=== PATIENT | female | born 1980 | race Caucasian/White ===

== ENCOUNTER → 2019-11-26 | Outpatient (CLI) | payer MEDICAID ==
[~2019-11-26] MED LIST: PANT-47 PO
== END | disposition home or self-care (01) ==
LOC: VAS 14:47
PROVIDERS: ATTEND Family Medicine
DX: R60.0 Localized edema (principal)
CPT/HCPCS: 93971

== ENCOUNTER 2021-12-14 07:21 | Day surgery (SDC) | payer MEDICAID ==
[2021-12-07 09:37] LABS: BASOPHILS % (AUTO) 0.3 % (0-1); EOSINOPHILS # (AUTO) 0.1 X10'3 (0-0.9); EOSINOPHILS % (AUTO) 1.7 % (0-6); LYMPHOCYTES # (AUTO) 1.5 X10'3 (1.1-4.8); LYMPHOCYTES % (AUTO) 21.8 % (21-51); MEAN CORPUSCULAR HEMOGLOBIN 28.2 PG (27.0-31.0); MEAN CORPUSCULAR HGB CONC 33.6 g/dL (33.0-36.5); MEAN CORPUSCULAR VOLUME 83.9 FL (78-98); MEAN PLATELET VOLUME 9.7 FL (7.4-10.4); MONOCYTES # (AUTO) 0.3 X10'3 (0-0.9); MONOCYTES % (AUTO) 4.5 % (2-12); NEUTROPHILS # (AUTO) 4.9 X10'3 (1.8-7.7); NEUTROPHILS % (AUTO) 71.7 % (42-75); PRE OP HEMATOCRIT 39.6 % (35.0-45.0); PRE OP HEMOGLOBIN 13.3 g/dL (12.0-16.0); PRE OP PLATELET COUNT 253 X10'3 (140-440); RED BLOOD COUNT 4.72 X10'6 (4.20-5.60); RED CELL DISTRIBUTION WIDTH 13.7 % (11.5-14.5)
[2021-12-07 09:49] LABS: ALBUMIN 3.5 G/DL (3.4-5.0); ALBUMIN/GLOBULIN RATIO 0.8 (1.1-1.5); ALKALINE PHOSPHATASE 61 IU/L (46-116); BLOOD UREA NITROGEN 10 MG/DL (7-18); BUN/CREATININE RATIO 13.7 (6.6-38.0); CALCIUM 8.9 MG/DL (8.5-10.1); CHLORIDE 102 MMOL/L (99-107); CREATININE 0.73 MG/DL (0.40-0.90); HCG SERUM QL NEGATIVE; PRE OP ALT 20 U/L (30-65); PRE OP ANION GAP 8 (8-16); PRE OP AST 18 U/L (10-37); PRE OP BILIRUB, TOTAL 0.5 MG/DL (0.0-1.0); PRE OP GLUCOSE 101 MG/DL (70-104); PRE OP POTASSIUM 3.6 MMOL/L (3.4-5.1); PRE OP SODIUM 139 MMOL/L (135-145); TOTAL CARBON DIOXIDE 28.7 MMOL/L (24-32); TOTAL PROTEIN 7.8 G/DL (6.4-8.2); eGFR 87 ML/MIN
[~2021-12-14] VITALS: Ht 157.5 cm; Wt 146.6 kg
[2021-12-14] VITALS (9 sets, daily range): BP systolic 120–149; BP diastolic 69–100
[~2021-12-14 07:21] MED LIST changes: +HYDR25TA4 PO; -PANT-47 PO; +famotidine 20mg tablet PO ONE; +ringers solution, lacted 1,000 ML IV SCH
[2021-12-14] MEDS ORDERED: BUPIVAcaine/PF 2.5 mg/ml (0.25%) 30ml vial ONE ×2 (09:02→10:04)
[2021-12-14] MEDS ORDERED: morphine 4 MG/ML inj SYRINge IV PRN (10:15)
[2021-12-14] MEDS ORDERED: sevoflurane 250ml liquid IH ONE (10:15)
[2021-12-14] MEDS ORDERED: hydrALAZINE 20mg/ml inj. IV PRN (10:15)
[2021-12-14] MEDS ORDERED: ringers solution, lacted 1,000 ML IV SCH (10:15)
[2021-12-14] MEDS ORDERED: ondansetron/PF 4mg/2ml inj IV PRN (10:15)
[2021-12-14] MEDS ORDERED: dexamethasone sod phosphate 10mg/ml inj ONE (10:15)
[2021-12-14] MEDS ORDERED: fentaNYL/PF 50MCG/1 ML 2ML syringe IV PRN ×2 (10:15)
[2021-12-14] MEDS ORDERED: morphine 2 MG/ML inj. syringe IV PRN (10:15)
[2021-12-14] MEDS ORDERED: labetalol 20mg/4ml (5mg/ml) syringe IV PRN (10:15)
[2021-12-14] MEDS ORDERED: midazolam 1 mg/ML 2ml injection ONE (10:21)
[2021-12-14] MEDS ORDERED: fentaNYL/PF 50MCG/1 ML 2ML syringe ONE (10:21)
[2021-12-14] MEDS ORDERED: propofol inj 20 ML IV ONE ×2 (10:27)
[2021-12-14] MEDS ORDERED: rocuronium 10mg/ml inj IV ONE (10:28)
[2021-12-14] MEDS ORDERED: LIDOcaine 2% (20mg/ml) 5ml vial ONE (10:28)
[2021-12-14] MEDS ORDERED: ondansetron/PF 4mg/2ml inj ONE (10:35)
[2021-12-14] MEDS ORDERED: sugammadex 200mg/2ml injection IV ONE (10:37)
[2021-12-14] MEDS ORDERED: labetalol 20mg/4ml (5mg/ml) syringe IV ONE ×2 (10:38→10:57)
--- NOTE | 2021-12-14 12:12 | NUR ---
Received from OR via [facility], accompanied by Anesthesiologist DR BERNABE and report given by Anesthesiolgist. PT PRESENT WITH PIV 20G RIGHT HAND, VSS. Addendum: 12/14/21 at 1222 by Maryse Ge RN, RN Amended: Links added.
[2021-12-14] MEDS ORDERED: ketorolac trometh. 30mg/ml inj. IM ONE (12:15)
[2021-12-14] MEDS ORDERED: ketorolac trometh. 30mg/ml inj. IV ONE (12:25)
[2021-12-14] MEDS ORDERED: oxyCODONE/APAP 5-325mg tablet PO ONE (12:35)
== END 2021-12-14 13:22 | disposition home or self-care (01) ==
LOC: PAS 07:21
PROVIDERS: ATTEND Obstetrics & Gynecology
DX: Z30.2 Encounter for sterilization (principal); N92.0 Excessive and frequent menstruation with regular cycle; I10 Essential (primary) hypertension; D64.9 Anemia, unspecified; E66.01 Morbid (severe) obesity due to excess calories; Z68.44 Body mass index [BMI] 60.0-69.9, adult; Z87.891 Personal history of nicotine dependence; Z79.899 Other long term (current) drug therapy; Z98.890 Other specified postprocedural states
CPT/HCPCS: 36415; 58563; 58670; 80053; 82948; 84703; 85025; 86885; 86900; 86901; 93005; J1100; J1885; J2250; J2405; J2704; J3010; J3490; J7030; J7120; Z7506; Z7508; Z7512; A4355; A4618; A4649; A6258